=== PATIENT | female | born 1990 | race Caucasian/White ===

== ENCOUNTER → 2016-10-14 | Outpatient (CLI) | payer BC | END | disposition home or self-care (01) | LOC: C.PAPS 10:10 | PROVIDERS: ATTEND Physician Assistant | DX: Z01.419 Encounter for gynecological examination (general) (routine) without abnormal findings (principal) ==

== ENCOUNTER 2019-04-30 23:09 | Inpatient (IN) ==
[2019-05-01] MEDS ORDERED: OXYTOCIN 30 UNITS/500 ML BAG IV PRN ×3 (00:16→05:57)
--- NOTE | 2019-05-01 00:17 | History & Physical Report ---
Date of Service May 01, 2019 Assessment & Plan (1) Supervision of normal intrauterine in primigravida: 28yo at 38.1 weeks GA. PROM 1. Fetus: Cat 1 2. Labor: Will augment with oxytocin 3. Vitals: WNL 4. GBS negative 5. Rh negative: Rhogam eval PP (2) Need for rhogam due to Rh negative mother: History of Present Illness Primary Care Provider: NO PCP 28yo at 38.1 weeks GA. Presents for LOF. Denied VB, LOF. Good FM. complicated by Rh negative Allergies Allergy/AdvReac Type Severity Reaction Status Date / Time No Known Allergies Allergy Verified 05/01/19 01:03 Home Medications Home Medications Medication Instructions Recorded Confirmed Type cholecalciferol (vitamin D3) 2,000 2,000 unit PO DAILY tab 01/16/19 05/01/19 History unit tablet 1 tab PO DAILY 01/16/19 05/01/19 History vitamin,calcium,hnhtoadl-vnnq-hsrzr acid tablet ferrous sulfate 1 tab PO DAILY 04/17/19 05/01/19 History Patient History Medical History History of varicella vaccination Surgical History S/P wisdom tooth extraction Family History Grandmother (Paternal) Breast cancer Uncle Thyroid cancer paternal Social History Preferred Language: Tu[place] Communication Ability: Effective Beliefs That Will Affect Care: None marital status: Current Living Situation: Spouse Other Information That Helps Us Care for You: No Feels Safe at Home: Yes Safety Concerns: Feels Safe At This Time Smoking Status: Never smoker Do You Dip or Chew Tobacco: No ; Hx Alcohol Use: No Hx Substance Use: No Physical Exam Constitutional: WD/WN, vitals as above Gastrointestinal (Abdomen): Inspection/Auscultation: abdomen normal to inspection; abdomen not distended Percussion/Palpation: abdomen soft; abdomen nontender, no guarding and abdomen not rigid Psychiatric: A+Ox3, euthymic affect Genitourinary: no vaginal lesions, no adnexal mass OB Exam Abdomen: + vertex Manual OB Exam: + cervical dilation 1 cm, + cervical effacement 70%, + station -2 and + amniotic fluid (+ Pooling) clear, nitrazine positive and ferning present OB Exam Monitor Tracing: + external FHT monitor used, + external uterine monitor used, + category I and + normal FHT variability; no late decelerations present and no variable decelerations Results & Data Vital Signs (Past 12 Hours) Vital Signs Temp Pulse Resp BP 04/30/19 23:20 36.7 C 20 04/30/19 23:18 102 H 129/80
[2019-05-01] MEDS: LACTATED RINGER'S 1,000 ML IV PRN ×2 (00:20→05:18)
[2019-05-01 00:38] LABS: Hematocrit (blood only) 38.6 % (37-47); Hemoglobin 13.4 g/dL (12.0-16.0); Mean Corpuscular Hemoglobin 30.9 pg (25-34); Mean Corpuscular Volume 89.1 fL (80-100); Mean Platelet Volume 11.6 fL (7.4-10.4); Platelet Count 162 K/uL (130-400); RDW Coefficient of Variation 12.3 % (11.5-14.5); RDW Standard Deviation 39.9 fL (36.4-46.3); Red Blood Count 4.33 M/uL (4.2-5.4); White Blood Count 12.82 K/uL (4.8-10.8)
[2019-05-01 01:24] LABS: Mean Corpuscular Hgb Conc 34.7 g/dL (32-36)
[2019-05-01] MEDS ORDERED: ePHEDrine sulfate 50 MG/ML AMP ONE (02:47)
[2019-05-01] MEDS ORDERED: fentaNYL citrate 100 MCG/2 ML VIAL ONE (02:47)
[2019-05-01] MEDS ORDERED: fentaNYL 2MCG/ML ROPIV 1.25MG/ML 100 ML BAG EPI ONE (02:47)
[2019-05-01] MEDS ORDERED: BUPIVACAINE 0.25% 30 ML VIAL ONE (02:47)
[2019-05-01] MEDS ORDERED: DiphenhydrAMINE HCL 50 MG/ML VIAL IV PRN (02:54)
[2019-05-01] MEDS ORDERED: fentaNYL 2MCG/ML ROPIV 1.25MG/ML 100 ML BAG EPI PRN (02:54)
[2019-05-01] MEDS ORDERED: NALBUPHINE HCL INJ 10 MG/ML AMP IV PRN (02:54)
[2019-05-01] MEDS ORDERED: NALOXONE HCL 1 MG in SODIUM CHLORIDE 0.9% 1000ML 1,000 ML IV PRN (02:54)
[2019-05-01] MEDS ORDERED: ePHEDrine sulfate 50 MG/ML AMP IV PRN (02:54)
[2019-05-01] MEDS ORDERED: NALOXONE HCL 0.4 MG/1 ML VIAL/CARP IV PRN (02:54)
[2019-05-01] MEDS ORDERED: ONDANSETRON INJ 2 MG/ML 2 ML VIAL IV PRN (02:54)
--- NOTE | 2019-05-01 02:57 | Anesthesiology Consultation ---
Date of Service May 01, 2019 Assessment & Plan (1) Encounter for pre-operative examination: Chart Review Chart Review: Patient NOT seen in Pre Admission Testing and Acceptable Risk for Labor Epidural Consults Requested none History Height/Weight Height: 5 ft 3 in Weight: 64.41 kg Allergies Allergy/AdvReac Type Severity Reaction Status Date / Time No Known Allergies Allergy Verified 05/01/19 01:03 Medications Home Medications Medication Instructions Recorded Confirmed Last Taken cholecalciferol (vitamin D3) 2,000 2,000 unit PO DAILY tab 01/16/19 05/01/19 04/30/19 08:00 unit tablet 1 tab PO DAILY 01/16/19 05/01/19 04/30/19 vitamin,calcium,mcfpozvo-hzse-lcguw acid tablet ferrous sulfate 1 tab PO DAILY 04/17/19 05/01/19 1 Day Ago ~04/30/19 Active Medications Generic Name Dose Route Start Last Admin Trade Name Freq PRN Reason Stop Dose Admin Lactated Ringer's 1,000 mls @ 125 mls/hr 05/01/19 00:16 05/01/19 02:58 Lr IV 05/03/19 00:15 999 mls/hr .Q8H PRN Titration L&D Protocol Protocol Oxytocin 30 units in 500 mls @ 6 mls/hr 05/01/19 00:16 05/01/19 02:00 Pitocin IV 05/03/19 00:15 0.36 units/hr .Q24H PRN 6 mls/hr Labor Induction/Augmentation Titration Protocol 0.36 UNITS/HR Past Medical History Medical History History of varicella vaccination Exercise / Class Metabolic Activity III < 4 Walking/Shop/Light housework Past Family History Family History Grandmother (Paternal) Breast cancer Uncle Thyroid cancer paternal Past Surgical History Surgical History S/P wisdom tooth extraction Past Anesthesia History No Hx of Anesthesia Complications and No Family Hx of Anesthesia Complications History of PONV No Hx of PONV and No Hx of Motion Sickness Social History Smoking Status: Never smoker Do You Dip or Chew Tobacco: No Hx Alcohol Use: No Hx Substance Use: No Physical Exam Vital Signs Last Vital Signs Temp 36.6 C 05/01/19 02:20 Pulse 103 H 05/01/19 02:54 Resp 20 05/01/19 02:30 BP 122/60 05/01/19 02:54 Testing Laboratory Results 05/01/19 00:30
[2019-05-01] MEDS ORDERED: ACETAMINOPHEN 325 MG TAB PO PRN (05:57)
[2019-05-01] MEDS ORDERED: SUPERCREAM 0.870% 15 GM JAR EXT PRN (05:57)
[2019-05-01] MEDS ORDERED: BENZOCAINE 20% AER SPR 82.5 GM CAN EXT PRN (05:57)
[2019-05-01] MEDS ORDERED: BISACODYL 10 MG SUPP PR PRN (05:57)
[2019-05-01] MEDS ORDERED: HYDROCORTISONE ACETATE 25 MG SUPP PR PRN (05:57)
[2019-05-01] MEDS ORDERED: DIPHTHERIA/TETANUS/PERTUSSIS 0.5 ML SYR/VIAL IM ONE (06:15)
--- NOTE | 2019-05-01 06:39 | Delivery Summary ---
DATE OF OPERATION: 05/01/2019 PROCEDURE: Normal spontaneous vaginal delivery with first degree perineal laceration repair. SURGEON: Sánchez Martin MD PREOPERATIVE DIAGNOSES: 1. Single intrauterine at 38 weeks 1 day gestational age. 2. Rh negative. 3. Premature rupture of membranes. POSTOPERATIVE DIAGNOSES: 1. Single intrauterine at 38 weeks 1 day gestational age. 2. Rh negative. 3. Premature rupture of membranes. 4. Status post delivery. ESTIMATED BLOOD LOSS: 200 mL. DRAINS: None. FLUIDS: Continuous lactated ringer. URINE OUTPUT: Not measured. COMPLICATIONS: None. FINDINGS: Viable male with weight pending, Apgars of 8 and 9 at 1 and 5 minutes respectively. DESCRIPTION OF PROCEDURE: The patient progressed to 10 cm dilated, 100% effaced, +2 station, pushed over intact perineum with epidural anesthesia and delivered a viable male with weight and Apgars as noted above. Head of the delivered in YASMINE position, rest into right transverse. No nuchal cord was noted. Body and shoulders quickly followed. was noted to be vigorous upon delivery. A 1-minute delayed cord clamping was initiated. The cord was double clamped and cut. Cord blood was obtained. Attention was then turned to deliver the placenta, delivered intact, 3-vessel cord, gentle cord traction. On inspection of perineum, vagina, and cervix, noted a first degree perineal laceration which was repaired with 4-0 Vicryl in a single running continuous stitch. Needle, sponge and instrument counts were correct at the completion of the case with mother and stable in the immediate post-delivery. I attest to the content of the Intraoperative Record and any orders documented therein. Any exception s are noted below.
[2019-05-01] MEDS: DOCUSATE SODIUM 100 MG CAP PO SCH ×2 (08:04→21:09)
[2019-05-01] MEDS: PRENATAL VITAMIN 1 TAB PO SCH (08:04)
[2019-05-01] MEDS: IBUPROFEN 600 MG TAB PO PRN ×2 (09:58→19:45)
[2019-05-02 06:10] LABS: Hemoglobin 13.2 g/dL (12.0-16.0)
--- NOTE | 2019-05-02 06:21 | Obstetrical Progress Note ---
Date of Service <Bora Felipe DO - Last Filed: 05/02/19 06:22> May 02, 2019 Assessment & Plan <DO Daisha Daly Last Filed: 05/02/19 06:22> (1) : -PPD#1 -Vitals reviewed, WNL (Tmax 36.8) - GBS -, Blood Type O- - Baby boy was A-, no need for Rhogam, last rhogam 02/27/19 - Clinically stable. - Feels well today. Eating well, voiding well, ambulating well. - Pain well controlled. - Routine post- care - After discharge will have [address] Martin. Day #:: 1 Subjective <Bora Felipe DO Last Filed: 05/02/19 06:22> Ambulation: ambulating normally Voiding: no voiding problems Passing Gas:: Yes Diet Tolerance:: regular diet Lochia:: Moderate Feeding Type:: bottle feeding (blue simulac ) Current Pain Level(1-10): 1 (improves with analgesics) Patient is a 28 PPD#1. Patient states that she is feeling well today and that her pain is well controlled. She has no other complaints at this time. Constitutional: no fever and no chills Respiratory: no cough, no dyspnea and no wheezing Cardiovascular: no chest pain, no dyspnea, no palpitations, no edema and no calf pain Breast: no breast pain Gastrointestinal: no abdominal pain, no nausea and no vomiting Genitourinary (female): no dysuria and no difficulty urinating Neurologic: no headache(s) Physical Exam <DO Daisha Daly Last Filed: 05/02/19 06:22> Constitutional WD/WN, vitals as above Respiratory normal respiratory effort, lungs clear to auscultation Cardiovascular Rate/Rhythm: regular rate and regular rhythm Heart Sounds: normal S1 and normal S2; no click, no gallop, no murmur and no cardiac rub Extremities: no calf tenderness and no edema Gastrointestinal (Abdomen) Inspection/Auscultation: abdomen normal to inspection and normal bowel sounds Percussion/Palpation: abdomen soft; abdomen nontender Genitourinary OB Exam Abdomen: + fundal height Fundus: + firm and + relation to umbilicus (2cm below); not tender and not boggy Results & Data <Bora Felipe DO - Last Filed: 05/02/19 06:22> Vital Signs (Past 12 Hours) Vital Signs Temp Pulse Resp BP 05/02/19 03:40 36.8 C 89 16 119/75 05/02/19 00:05 36.6 C 71 16 99/62 L 05/01/19 19:25 36.7 C 80 18 124/79 <Lavonne Barrett MD, FACOG - Last Filed: 05/02/19 07:22> Co-Signing Physician Notes Resident Physician Supervision Note: I was present with Dr. Felipe during the history and exam. I discussed the case with the resident and agree with the findings and plan as documented in the note. Any exceptions or clarifications are listed here: doing well, bottle feeding, wants to go home later today, instructions reviewed, nursery aware. f/u 6 wks pp check. Documented By: Lavonne Barrett MD, FACOG Resident Activity Tracking <Bora Felipe DO - Last Filed: 05/02/19 06:22> Resident Involvement: Resident Care Provided Care Provided: OB Delivery
[2019-05-02] MEDS: IBUPROFEN 600 MG TAB PO PRN ×2 (06:38→15:45)
[2019-05-02] MEDS: DOCUSATE SODIUM 100 MG CAP PO SCH (07:55)
[2019-05-02] MEDS: PRENATAL VITAMIN 1 TAB PO SCH (07:55)
[2019-05-02] MEDS ORDERED: BISACODYL 5 MG TABEC PO SCH (20:00)
== END 2019-05-02 19:16 | disposition home or self-care (01) | DRG 807 ==
LOC: OPB 23:09 → 4S1 23:13 → 4S2 05-01 18:10